=== PATIENT | male | born 1955 | race Caucasian/White ===

== ENCOUNTER 2020-12-21 11:01 | Inpatient (IN) | payer OTHER ==
[~2020-12-21] VITALS: Ht 182.9 cm; Wt 92.4 kg
[~2020-12-21 11:01] MED LIST: BUPIVACAINE/PF 0.5% ONE; CEFAZOLIN 1,000 MG ONE; EPINEPHRINE 1 MG/ML, 1ML ONE
[2020-12-21 11:47] VITALS: BP 129/72
[2020-12-21] MEDS ORDERED: ZINC100T PO (12:08)
[2020-12-21] MEDS ORDERED: ASPI81TA45 PO (12:08)
[2020-12-21] MEDS ORDERED: POTA99TA24 PO (12:08)
[2020-12-21] MEDS ORDERED: ATOR10TA9 PO (12:08)
[2020-12-21] MEDS ORDERED: GABA600T7 PO (12:08)
[2020-12-21] MEDS ORDERED: VIT1CAPS PO (12:08)
[2020-12-21] MEDS ORDERED: TUME1CAP PO (12:08)
[2020-12-21] MEDS ORDERED: MULT-464 PO (12:08)
[2020-12-21] MEDS ORDERED: IBUP-1902 PO (12:08)
[2020-12-21] MEDS ORDERED: ACET650S21 PO (12:08)
[2020-12-21] MEDS ORDERED: CHLORHEXIDINE 15 ML UDC PO ONE (12:30)
[2020-12-21] MEDS ORDERED: LACTATED RINGERS 1,000 ML IV SCH (12:30)
[2020-12-21] MEDS ORDERED: MIDAZOLAM 1 MG/ML, 2ML ONE (14:20)
[2020-12-21] MEDS ORDERED: FENTANYL PF 250 MCG/5ML ONE (14:20)
[2020-12-21] MEDS ORDERED: LABETALOL 5MG/ML, 20ML IV PRN ×2 (17:00→18:30)
[2020-12-21] MEDS ORDERED: OXYcodone 5 MG/5 ML ORAL.SOL UDC PO PRN (17:00)
[2020-12-21] MEDS ORDERED: HYDROmorphone 1 MG/ML, 1ML INJ IV PRN (17:00)
[2020-12-21] MEDS ORDERED: PROMETHAZINE 12.5 MG SUPP PR PRN (17:00)
[2020-12-21] MEDS ORDERED: hydrALAzine 20 MG/ML, 1ML IV PRN (17:00)
[2020-12-21] MEDS ORDERED: ONDANSETRON ODT 8 MG PO PRN (17:00)
[2020-12-21] MEDS ORDERED: ONDANSETRON 2MG/ML, 2ML IV PRN ×2 (17:00→18:30)
[2020-12-21] MEDS ORDERED: FENTANYL PF 100 MCG/2ML ONE (17:06)
[2020-12-21] MEDS ORDERED: OXYcodone 5 MG/5 ML ORAL.SOL UDC ONE (17:06)
[2020-12-21] MEDS: FENTANYL PF 100 MCG/2ML IV PRN ×2 (17:10→17:18)
[2020-12-21] MEDS ORDERED: TIZANIDINE 4MG TABLET PO ONE (18:00)
[2020-12-21] MEDS ORDERED: DIPHENHYDRAMINE 25 MG CAPSULE PO PRN (18:30)
[2020-12-21] MEDS ORDERED: TIZANIDINE 4MG TABLET PO PRN (18:30)
[2020-12-21] MEDS ORDERED: PROMETHAZINE 25 MG/ML, 1ML IM PRN (18:30)
[2020-12-21] MEDS ORDERED: OXYcodone IR 5MG TABLET PO PRN (18:30)
[2020-12-21] MEDS ORDERED: BISACODYL 10 MG SUPP PR PRN (18:30)
[2020-12-21] MEDS ORDERED: DIPHENHYDRAMINE 50 MG/ML, 1ML IVPush PRN (18:30)
[2020-12-21] MEDS ORDERED: morphine SULFATE 10 MG/ML, 1ML IV PRN (18:30)
[2020-12-21] MEDS ORDERED: SODIUM CHLORIDE 0.9% 1,000ML IV PRN (18:30)
[2020-12-21] MEDS ORDERED: MAGNESIUM HYDROXIDE 8%, 30ML UDC PO PRN (18:30)
[2020-12-21] MEDS ORDERED: DIPHENHYDRAMINE 50 MG/ML, 1ML IM PRN (18:30)
[2020-12-21 19:41] VITALS: BP 137/76
[2020-12-21] MEDS: NS + 20MEQ KCL 1,000 ML IV SCH (20:32)
[2020-12-21] MEDS: GABAPENTIN 300 MG CAPSULE PO SCH (20:32)
[2020-12-21] MEDS ORDERED: ATORVASTATIN 10 MG TABLET PO SCH (21:00)
[2020-12-21] MEDS: CEFAZOLIN PMX 1GM/50ML 50 ML IVPB SCH (22:20)
[2020-12-21] MEDS: HYDROcodone/APAP 5/325 TABLET PO PRN (22:20)
[2020-12-22 00:52] VITALS: BP 145/84
[2020-12-22 05:14] VITALS: BP 114/64
[2020-12-22] MEDS: NS + 20MEQ KCL 1,000 ML IV SCH (06:11)
[2020-12-22] MEDS: CEFAZOLIN PMX 1GM/50ML 50 ML IVPB SCH (06:11)
[2020-12-22 08:30] VITALS: BP 108/56
[2020-12-22] MEDS ORDERED: SENNA/DOCUSATE TABLET PO SCH (09:00)
[2020-12-22] MEDS ORDERED: MULTIVITAMINS/MINERALS TABLET PO SCH (09:00)
[2020-12-22] MEDS: HYDROcodone/APAP 5/325 TABLET PO PRN (09:11)
[2020-12-22] MEDS: GABAPENTIN 300 MG CAPSULE PO SCH (09:11)
== END 2020-12-22 11:42 | disposition home or self-care (01) | DRG 472 ==
LOC: OUT 11:01 → 4NE 18:10 → OUT 21:59 → 4NE 22:00
PROVIDERS: ADMIT Neurological Surgery; ATTEND Neurological Surgery
PROC: 4A11X4G Monitoring of Peripheral Nervous Electrical Activity, Intraoperative, External Approach (ICD-10-PCS; 2020-12-21)
PROC: 0RG10A0 Fusion of Cervical Vertebral Joint with Interbody Fusion Device, Anterior Approach, Anterior Column, Open Approach (ICD-10-PCS; principal; 2020-12-21 14:00)
DX: M48.02 Spinal stenosis, cervical region (principal); M47.12 Other spondylosis with myelopathy, cervical region; M50.30 Other cervical disc degeneration, unspecified cervical region; M54.12 Radiculopathy, cervical region; Z79.899 Other long term (current) drug therapy
CPT/HCPCS: 72040; S0020; C1713; G0378; J0171; J0690; J2250; J3010; J3480; C1762; C1889; J7120